=== PATIENT | female | born 1990 | race Caucasian/White ===

== ENCOUNTER → 2020-06-29 | Outpatient (CLI) | payer BC ==
[2020-06-29 16:34] LABS: Basophils % (A) 0 %; Eosinophils # (A) 0.1 k/uL (0-0.7); Eosinophils % (A) 1 %; HCT 38.6 % (34.0-46.0); HGB 12.8 gm/dL (11.4-16.0); Lymphocytes # (A) 3.2 k/uL (1.0-4.8); Lymphocytes % (A) 31 %; MCH 30.7 pg (25.0-35.0); MCHC 33.2 g/dL (31.0-37.0); MCV 92.4 fL (80.0-100.0); Mean Platelet Volume 6.8; Monocytes # (A) 0.5 k/uL (0-1.0); Monocytes % (A) 4 %; Neutrophils # (A) 6.5 k/uL (1.3-7.7); Neutrophils % (A) 63 %; Platelet Count 449 k/uL (150-450); RBC 4.18 m/uL (3.80-5.40); RDW 12.6 % (11.5-15.5); WBC 10.4 k/uL (3.8-10.6)
== END | disposition home or self-care (01) ==
LOC: LABPAT 15:10
PROVIDERS: ATTEND Obstetrics & Gynecology
DX: Z01.818 Encounter for other preprocedural examination (principal); O02.1 Missed abortion; Z3A.00 Weeks of gestation of pregnancy not specified
CPT/HCPCS: 36415; 85025

== ENCOUNTER → 2020-07-01 | Day surgery (SDC) | payer BC ==
[2020-06-29 14:40] VITALS: BMI 33.8
[~2020-07-01] MED LIST: Acetaminophen-Codeine 300-30mg TAB PO PRN; DEXAMETHASONE SOD PHOSPHATE 4 MG/ML 1 ML VIAL IVP ONE; IBUPROFEN 600 MG TAB PO PRN; KETOROLAC 15 MG/ML 1 ML VIAL IVP PRN; KETOROLAC 15 MG/ML 1 ML VIAL ONE; LACTATED RINGERS 1,000 ML IV ONE; LACTATED RINGERS 1,000 ML IV SCH; LIDOCAINE 1% INJ 10MG/ML (20 ML MDV) ONE; METOCLOPRAMIDE 5 MG/ML 2 ML VIAL IVP PRN; MIDAZOLAM 2 MG/2 ML VIAL ONE; ONDANSETRON 4 MG/2 ML VIAL IVP ONE; ONDANSETRON 4 MG/2 ML VIAL IVP PRN; ONDANSETRON 4 MG/2 ML VIAL ONE; PROPOFOL 10 MG/ML 20 ML VIAL IV ONE; Pre Op ABX Message 1 EACH MISC MISCELLANE ONE; SIMETHICONE 80 MG CHEWABLE PO PRN; diphenhydrAMINE 50 MG/ML 1 ML VIAL IVP PRN; fentaNYL (PF) 50 MCG/ML 2 ML AMP ONE
[2020-07-01 10:06] VITALS: TEMP 97.5
--- NOTE | 2020-07-01 10:07 | P.OP ---
Date of Procedure: 07/01/20 Preoperative Diagnosis: #1. 6+ weeks missed Postoperative Diagnosis: Same Procedure(s) Performed: #1. Dilation and aspiration curettage Anesthesia: other (Gen. by facemask) Surgeon: Willian Aguilar Estimated Blood Loss (ml): 100 IV fluids (ml): 700 Urine output (ml): 20 Pathology: other (Endometrial contents) Condition: stable Disposition: PACU Operative Findings: Preoperative pelvic examination demonstrated a 6 week anteverted mobile normal shaped uterus with normal adnexa bilaterally. Intraoperatively, the uterus sounded to approximately 10 cm. During curettage, tissue was noted passing through the tubing. Using the sharp curet, the typical gritty texture was encountered throughout the endometrium and there was no ongoing tissue removed either with sharp or aspiration curettage. Description of Procedure: The patient was prepped and draped in usual fashion after general anesthesia was administered by the anesthesiologist. A weighted speculum was placed and the bladder drained of approximately 20 mL of clear abel urine. The anterior lip of the cervix was grasped with single-tooth tenaculum and uterus sounded to approximately 10 cm as noted above. Serial dilation was carried out to admit a #8 curved aspiration curet which was placed to the fundus and suction applied. After adequate suction of been built, thorough and circumferential aspiration curettage was carried out from the fundus to the cervix with tissue clearly seen passing through the tubing on the first pass. A second pass was made and there was no further tissue noted. The aspiration curet was set aside in favor of a medium sharp curet which was utilized to again thoroughly and circumferentially curet the endometrium removing tissue into the vagina at which time no tissue was returned in the typical gritty texture was encountered throughout. The aspiration curet was return for one last pass which time no further tissue was noted. All instrumentation was then removed. There is some ongoing bleeding from one of the tenaculum sites was made hemostatic with pressure. Assessment a blood loss for the entire case was approximately 100 mL. There are no complications. All sponge, instrument, needle counts were correct. The patient tolerated the procedure well and proceeded to the recovery room in stable condition.
[2020-07-01 10:44] VITALS: RESP 17
[2020-07-01 11:22] VITALS: BP 110/67; PULSE 50
== END | disposition home or self-care (01) ==
LOC: OR 07:58
PROVIDERS: ATTEND Obstetrics & Gynecology
DX: O02.1 Missed abortion (principal); O99.511 Diseases of the respiratory system complicating pregnancy, first trimester; J30.2 Other seasonal allergic rhinitis; O99.891 Other specified diseases and conditions complicating pregnancy; M06.9 Rheumatoid arthritis, unspecified; Z87.448 Personal history of other diseases of urinary system; Z86.19 Personal history of other infectious and parasitic diseases; Z90.89 Acquired absence of other organs; Z3A.01 Less than 8 weeks gestation of pregnancy; Z83.3 Family history of diabetes mellitus; Z80.0 Family history of malignant neoplasm of digestive organs
CPT/HCPCS: 88305; 59820; J2250; J1100; J2405; J2001; J3010; J1885; J2704; 86850; 86900; 86901

== ENCOUNTER → 2021-07-27 | Outpatient (CLI) | payer BC | END | disposition home or self-care (01) | LOC: LABWHC1 10:02 | PROVIDERS: ATTEND Obstetrics & Gynecology | DX: O20.0 Threatened abortion (principal); Z3A.00 Weeks of gestation of pregnancy not specified | CPT/HCPCS: 36415; 84144; 84702 ==

== ENCOUNTER → 2021-07-29 | Outpatient (CLI) | payer BC | END | disposition home or self-care (01) | LOC: LABWHC1 08:51 | PROVIDERS: ATTEND Obstetrics & Gynecology | DX: O20.0 Threatened abortion (principal); Z3A.00 Weeks of gestation of pregnancy not specified | CPT/HCPCS: 36415; 84702 ==

== ENCOUNTER 2021-08-05 08:21 | Emergency (ER) | payer BC ==
[2021-08-05 08:30] VITALS: RESP 18
[2021-08-05] MEDS ORDERED: SODIUM CHLORIDE 0.9% 1,000 ML IV ONE (08:53)
[2021-08-05 09:18] LABS: Appearance,Urine Clear (Clear); Basophils % (A) 0 %; Bilirubin,Urine Negative (Negative); Blood,Urine Negative (Negative); Color,Urine Light Yellow; Eosinophils # (A) 0.2 k/uL (0-0.7); Eosinophils % (A) 2 %; Glucose,Urine (UA) Negative (Negative); HGB 13.6 gm/dL (11.4-16.0); Ketones,Urine Negative (Negative); Leukocyte Esterase,Urine Negative (Negative); Lymphocytes # (A) 2.4 k/uL (1.0-4.8); Lymphocytes % (A) 26 %; MCH 30.8 pg (25.0-35.0); MCHC 33.3 g/dL (31.0-37.0); MCV 92.6 fL (80.0-100.0); Mean Platelet Volume 6.5; Monocytes # (A) 0.3 k/uL (0-1.0); Monocytes % (A) 3 %; Neutrophils # (A) 6.1 k/uL (1.3-7.7); Neutrophils % (A) 67 %; Nitrite,Urine Negative (Negative); Platelet Count 536 k/uL (150-450); Protein,Urine Negative (Negative); RBC 4.42 m/uL (3.80-5.40); Specific Gravity,Urine 1.014 (1.001-1.035); Urobilinogen,Urine <2.0 mg/dL (<2.0); WBC 9.2 k/uL (3.8-10.6)
[2021-08-05 09:32] LABS: ALT 29 U/L (4-34); AST 33 U/L (14-36); African American GFR (CKD) >90 (>60 ml/min/1.73 sqM); Albumin 3.8 g/dL (3.5-5.0); Alkaline Phosphatase 44 U/L (38-126); Anion Gap 7 mmol/L; Blood Urea Nitrogen 10 mg/dL (7-17); Calcium 8.9 mg/dL (8.4-10.2); Carbon Dioxide 22 mmol/L (22-30); Chloride 107 mmol/L (98-107); Glucose 97 mg/dL (74-99); Lipase 47 U/L (23-300); Non-African American GFR(CKD) >90 (>60 ml/min/1.73 sqM); Potassium 3.9 mmol/L (3.5-5.1); Sodium 136 mmol/L (137-145); Total Bilirubin 0.4 mg/dL (0.2-1.3); Total Protein 6.8 g/dL (6.3-8.2)
[2021-08-05 09:46] LABS: HCG,Quantitative Serum 14.7 mIU/mL
--- NOTE | 2021-08-05 10:27 | US ---
EXAMINATION TYPE: US gallbladder DATE OF EXAM: 08/05/2021 COMPARISON: NONE CLINICAL HISTORY: pain. Pain EXAM MEASUREMENTS: Liver Length: 18.0 cm Gallbladder Wall: .2 cm CBD: .2 cm Right Kidney: 9.9 x 4.5 x 4.4 cm Pancreas: Tail obscured by overlying bowel gas Liver: wnl Gallbladder: wnl Evidence for sonographic Elkins's sign: no CBD: wnl Right Kidney: wnl Visualized portion of pancreas is within normal limits. There is no aneurysm and visualized portion o f the abdominal aorta. IVC is patent. Hepatic dome. Liver shows no worrisome mass or ductal dilatatio n. No right-sided hydronephrosis. No intraluminal gallstones. No biliary dilatation. IMPRESSION: No intraluminal gallstones or ultrasonic evidence for acute cholecystitis.
--- NOTE | 2021-08-05 10:28 | US ---
EXAMINATION TYPE: Transabdominal DATE OF EXAM: 08/05/2021 10:10 AM COMPARISON: NONE CLINICAL HISTORY: pain,miscarriage. Pain beta declining. EXAM PERFORMED: Transvaginal (TV) and Transabdominal (TA) EXAM MEASUREMENTS: GESTATIONAL AGE / DATING Physician Established: Not yet established Dates by LMP: 06/29/2021 (5 weeks/2 days) EDC: 04/05/2022 Dates by First Scan: No previous this is first scan Dates by Current Scan for: No IUP seen at this t ariel MATERNAL ANATOMY Uterus: 6.7 x 4.8 x 5.6 cm Right Ovary: 3.5 x 2.5 x 1.9 cm Left Ovary: 2.3 x 1.1 x .9 cm Post CDS / Adnexa: wnl Presence of free fluid: small amount Presence of corpus luteal cyst: no Presence of subchorionic bleed: no GESTATION / SURVEY IUP: No IUP seen at this time Beta HcG (if available): 42 Heterogeneous uterus with endometrium thickened to 15 mm. No visualized gestational sac, yolk sac, or pole. Tiny amount of free fluid in pelvic cul-de-sac. Both ovaries seen without suspicious extraovarian adnexal mass. IMPRESSION: No visualized intrauterine . Given history of declining beta-hCG, findings consi stent with spontaneous thought present.
--- NOTE | 2021-08-05 10:45 | ED ---
Abdominal Pain HPI - General Chief Complaint: Abdominal Pain Stated Complaint: right side pain, 6 week preg Time Seen by Provider: 08/05/21 08:32 Source: patient, family, RN notes reviewed Mode of arrival: ambulatory Limitations: no limitations - History of Present Illness Initial Comments: 30-year-old female presents emergency Department with chief complaint of right- sided abdominal pain. Patient states he woke up around 3:30 AM she states is right upper quadrant rate around to the back. She had no urinary frequency dysuria, hematuria. She states that she recently she is though is miscarrying she states she has not had any bleeding that she is followed very closely by her [employer]. Patient states her hCG has been trending down last one was around 30. Patient denies any chest pain shortness of breath no headache or dizziness. Patient states she no vomiting. - Related Data Home Medications Medication Instructions Recorded Confirmed No Known Home Medications 06/29/20 06/29/20 Allergies Allergy/AdvReac Type Severity Reaction Status Date / Time No Known Allergies Allergy Verified 08/05/21 08:30 Review of Systems ROS Statement: Those systems with pertinent positive or pertinent negative responses have been documented in the HPI. ROS Other: All systems not noted in ROS Statement are negative. Past Medical History Past Medical History: Rheumatoid Arthritis (RA) Additional Past Medical History / Comment(s): hx of juvenile rheumatoid arthritis- states it does not bother her now., missed AB., LMP 04/16/20. l History of Any Multi-Drug Resistant Organisms: None Reported Past Surgical History: Adenoidectomy, Tonsillectomy Additional Past Surgical History / Comment(s): nodule on voice box(child) Past Anesthesia/Blood Transfusion Reactions: No Reported Reaction, Family History of Problems w/ Anesthesia Additional Past Anesthesia/Blood Transfusion Reaction / Comment(s): grandfather=ponv Past Psychological History: No Psychological Hx Reported Smoking Status: Never smoker Past Alcohol Use History: None Reported Past Drug Use History: None Reported - Past Family History Mother Family Medical History: No Reported History Brother(s) Family Medical History: Diabetes Mellitus General Exam Limitations: no limitations General appearance: alert, in no apparent distress Head exam: Present: atraumatic, normocephalic, normal inspection Eye exam: Present: normal appearance, PERRL, EOMI. Absent: scleral icterus, conjunctival injection, periorbital swelling ENT exam: Present: normal exam, normal oropharynx, mucous membranes moist Neck exam: Present: normal inspection, full ROM. Absent: tenderness, meningismus, lymphadenopathy Respiratory exam: Present: normal lung sounds bilaterally. Absent: respiratory distress, wheezes, rales, rhonchi, stridor Cardiovascular Exam: Present: regular rate, normal rhythm, normal heart sounds. Absent: systolic murmur, diastolic murmur, rubs, gallop, clicks GI/Abdominal exam: Present: soft, tenderness, normal bowel sounds. Absent: distended, guarding, rebound, rigid Course Vital Signs 08/05/21 08/05/21 08:24 11:10 Temperature 97.2 F L 98.7 F Pulse Rate 62 67 Respiratory 18 18 Rate Blood Pressure 118/72 108/68 O2 Sat by Pulse 98 98 Oximetry Medical Decision Making - Medical Decision Making Patient ARE ESSENTIALLY UNREMARKABLE. PATIENT'S PAIN MORE CONSISTENT WITH BILIARY COLIC, LABS ARE REMARKABLE ONLY DISCHARGE STABLE CONDITION IF SYMPTOMS RETURN OR WORSEN SHE IS GENERALLY FIRM OR FOLLOW-UP WITH SURGERY FOR PROBABLE HIDA SCAN RETURN PARAMETERS DISCUSSED. PATIENT INFORMED EKG IS 14. - Lab Data Result diagrams: 08/05/21 09:00 08/05/21 09:00 Lab Results 08/05/21 08/05/21 08/05/21 Range/Units 09:00 09:00 09:00 WBC 9.2 (3.8-10.6) k/uL RBC 4.42 (3.80-5.40) m/uL Hgb 13.6 (11.4-16.0) gm/dL Hct 41.0 (34.0-46.0) % MCV 92.6 (80.0-100.0) fL MCH 30.8 (25.0-35.0) pg MCHC 33.3 (31.0-37.0) g/dL RDW 13.0 (11.5-15.5) % Plt Count 536 H (150-450) k/uL MPV 6.5 Neutrophils % 67 % Lymphocytes % 26 % Monocytes % 3 % Eosinophils % 2 % Basophils % 0 % Neutrophils # 6.1 (1.3-7.7) k/uL Lymphocytes # 2.4 (1.0-4.8) k/uL Monocytes # 0.3 (0-1.0) k/uL Eosinophils # 0.2 (0-0.7) k/uL Basophils # 0.0 (0-0.2) k/uL Sodium 136 L (137-145) mmol/L Potassium 3.9 (3.5-5.1) mmol/L Chloride 107 (98-107) mmol/L Carbon Dioxide 22 (22-30) mmol/L Anion Gap 7 mmol/L BUN 10 (7-17) mg/dL Creatinine 0.61 (0.52-1.04) mg/dL Est GFR (CKD-EPI)AfAm >90 (>60 ml/min/1.73 sqM) Est GFR (CKD-EPI)NonAf >90 (>60 ml/min/1.73 sqM) Glucose 97 (74-99) mg/dL Calcium 8.9 (8.4-10.2) mg/dL Total Bilirubin 0.4 (0.2-1.3) mg/dL AST 33 (14-36) U/L ALT 29 (4-34) U/L Alkaline Phosphatase 44 (38-126) U/L Total Protein 6.8 (6.3-8.2) g/dL Albumin 3.8 (3.5-5.0) g/dL Lipase 47 (23-300) U/L HCG, Quant 14.7 mIU/mL Urine Color Light Yellow Urine Appearance Clear (Clear) Urine pH 6.0 (5.0-8.0) Ur Specific [place] 1.014 (1.001-1.035) Urine Protein Negative (Negative) Urine Glucose (UA) Negative (Negative) Urine Ketones Negative (Negative) Urine Blood Negative (Negative) Urine Nitrite Negative (Negative) Urine Bilirubin Negative (Negative) Urine Urobilinogen <2.0 (<2.0) mg/dL Ur Leukocyte Esterase Negative (Negative) Disposition Clinical Impression: Abdominal pain, Miscarriage Disposition: HOME SELF-CARE Condition: Stable Instructions (If sedation given, give patient instructions): Abdominal Pain (ED) Additional Instructions: Please return to the ER for any worsening symptoms or any other concerns. Is patient prescribed a controlled substance at d/c from ED?: No Referrals: Carlton Holt MD [Primary Care Provider] - 1-2 days Time of Disposition: 10:45
[2021-08-05 11:11] VITALS: BP 108/68; PULSE 67; TEMP 98.7
== END 2021-08-05 11:11 | disposition home or self-care (01) ==
LOC: EC 08:21
DX: O03.9 Complete or unspecified spontaneous abortion without complication (principal); O26.891 Other specified pregnancy related conditions, first trimester; R10.11 Right upper quadrant pain; M06.9 Rheumatoid arthritis, unspecified; Z3A.01 Less than 8 weeks gestation of pregnancy
CPT/HCPCS: 36415; 76705; 76801; 76817; 80053; 81003; 83690; 84702; 85025; 96360; 99284

== ENCOUNTER 2022-07-09 00:40 | Outpatient (CLI) | payer BC ==
[2022-07-09 03:21] VITALS: BP 123/71; PULSE 67; RESP 16; TEMP 96.5
--- NOTE | 2022-08-25 12:01 | P.MSEPDOC ---
Presenting Problems - Arrival Data Date of Arrival on Unit: 07/09/22 Time of Arrival on Unit: 00:40 Mode of Transport: Wheelchair - Complaint OB-Reason for Admission/Chief Complaint: Possible Onset of Labor Comment: Lauren notified of patient present to triage due to contractions,. starting at 1530 about every 2-4min, cat 1 FHTs reviewed basline of 110, contractons. 2-4min rating them 6/10, no cervical change after 1 hour, orders to wait another hr and. recheck if pt. is still the same pt. can be discharged home. Medical History - Information : 3 Para: 0 Term: 0 : 0 Abortions: Spontaneous or Elective: 2 Number of Living Children: 0 - Gestational Age Gestational Age by JOSS (wks/days): 38 Weeks and 6 Days - History Comment: IUGR Review of Systems - Review of Systems Constitutional: No problems Breast: No problems ENT: No problems Cardiovascular: No problems Respiratory: No problems Gastrointestinal: No problems Genitourinary: No problems Musculoskeletal: No problems Neurological: No problems Skin: No problems Vital Signs - Temperature Temperature: 96.5 F Temperature Source: Temporal Artery Scan - Pulse Pulse Oximetery Pulse Rate: 67 Pulse Assessment Method: Automatic Cuff - Respirations Respiratory Rate: 16 Oxygen Delivery Method: Room Air O2 Sat by Pulse Oximetry: 97 - Blood Pressure Right Arm Blood Pressure: 123/71 Blood Pressure Mean: 88 Blood Pressure Source: Automatic Cuff Medical Screen Scoring - Cervical Exam Dilation (cm): 1 Effacement (%): 50 Membranes: Intact - Uterine Contractions Frequency From (mins): 2 Frequency To (mins): 4 Duration From (seconds): 40 Duration To (seconds): 70 Intensity: Mild Resting: Soft to palpation - Assessment - Baby A Baseline FHR: 110 Heart Rate - NICHD Category: Category I (Normal) NST: Reactive Physician Notification - Physician Notified Physician Notified Date: 07/09/22 Physician Notified Time: 02:02 Physician: Willian Aguilar Order Received: Yes - Notification Comment Comment: orders to discharge home if no cerival change Maternal Triage Index - Maternal Triage Index Presenting for scheduled procedure w/no complaint: No - Stat/Priority 1 Stat Priority 1: No - Urgent/Priority 2 Urgent Priority 2: No - Prompt/Priority 3 Prompt Priority 3: Yes Criteria Met for Priority 3: pt. is 38/6, contractions 2-4min rating 6/10, no cervical change within 2 hours. Disposition - Disposition OB Disposition: Discharge to home Discharge Date: 07/09/22 Discharge Time: 03:09 I agree with the RN Medical Screening Exam: Yes Physician's MSE Comment: I have neither seen nor examined the patient. Case reviewed; plan agreed upon as documented in EMR&OBIX.: Yes Diagnosis: RELATED CONDITIONS, UNSPECIFIED, THIRD TRIMESTER
== END 2022-07-09 03:09 | disposition home or self-care (01) ==
LOC: FBPOP 00:40
PROVIDERS: ATTEND Obstetrics & Gynecology
DX: O62.9 Abnormality of forces of labor, unspecified (principal); Z3A.38 38 weeks gestation of pregnancy
CPT/HCPCS: 59025; 99213

== ENCOUNTER 2024-03-30 03:26 | Inpatient (IN) | payer BC ==
[2024-03-30] MEDS: LACTATED RINGERS 1,000 ML IV SCH (04:00)
[2024-03-30] MEDS ORDERED: TERBUTALINE 1 MG/ML VIAL SQ PRN (04:12)
[2024-03-30] MEDS ORDERED: OXYTOCIN 10 UNIT/ML 1 ML VIAL IM PRN (04:12)
[2024-03-30] MEDS ORDERED: CARBOPROST TROMETHAMINE 250 MCG/ML 1 ML AMP IM PRN (04:12)
[2024-03-30] MEDS ORDERED: miSOPROStoL 200 MCG TAB RECTAL PRN (04:12)
[2024-03-30] MEDS ORDERED: miSOPROStoL 200 MCG TAB PO PRN (04:12)
[2024-03-30] MEDS ORDERED: TRANEXAMIC 1,000 MG/100ML-NACL 1,000 MG in EMPTY BAG 1 BAG IV PRN (04:12)
[2024-03-30] MEDS ORDERED: METHYLERGONOVINE 0.2 MG/ML 1 ML AMP IM PRN (04:12)
[2024-03-30] MEDS ORDERED: LIDOCAINE 0.5% (PF) 5 MG/ML (50 ML SDV) SQ PRN (04:12)
[2024-03-30 04:21] LABS: Basophils % (A) 0 %; Eosinophils # (A) 0.1 k/uL (0-0.7); Eosinophils % (A) 1 %; HGB 12.5 gm/dL (11.4-16.0); Lymphocytes # (A) 3.5 k/uL (1.0-4.8); Lymphocytes % (A) 26 %; MCH 30.1 pg (25.0-35.0); MCV 91.3 fL (80.0-100.0); Mean Platelet Volume 7.6; Monocytes # (A) 0.6 k/uL (0-1.0); Monocytes % (A) 4 %; Neutrophils # (A) 9.2 k/uL (1.3-7.7); Neutrophils % (A) 68 %; Platelet Count 392 k/uL (150-450); RBC 4.17 m/uL (3.80-5.40); RDW 13.8 % (11.5-15.5); WBC 13.5 k/uL (3.8-10.6)
[2024-03-30] MEDS ORDERED: fentaNYL (PF) 50 MCG/ML 5 ML AMP ONE (04:50)
[2024-03-30] MEDS ORDERED: ROPIVACAINE 5 MG/ML 30 ML VIAL ONE (04:50)
[2024-03-30] MEDS ORDERED: SODIUM CHLORIDE 0.9% 250 ML BAG ONE (04:50)
[2024-03-30] MEDS ORDERED: ROPIVACAINE 225 MG, fentaNYL (PF). 450 MCG in SODIUM CHLORIDE 0.9% 171 ML EPIDURAL ONE (05:29)
--- NOTE | 2024-03-30 07:05 | P.HPOB ---
History of Present Illness H&P Date: 03/30/24 Chief Complaint: SROM 33 year old presents at 40 weeks 4 days with spontaneous rupture of membranes. heart tones category 1 and fluid is clear. Her cervix was 3/80/ -2. She is kenan every 1-2 minutes. Review of Systems All systems: negative Constitutional: Denies chills, Denies fever Eyes: denies blurred vision, denies pain Ears, nose, mouth and throat: Denies headache, Denies sore throat Cardiovascular: Denies chest pain, Denies shortness of breath Respiratory: Denies cough Gastrointestinal: Denies abdominal pain, Denies diarrhea, Denies nausea, Denies vomiting Genitourinary: Denies dysuria, Denies hematuria Musculoskeletal: Denies myalgias Integumentary: Denies pruritus, Denies rash Neurological: Denies numbness, Denies weakness Psychiatric: Denies anxiety, Denies depression Endocrine: Denies fatigue, Denies weight change Past Medical History Past Medical History: Rheumatoid Arthritis (RA) Additional Past Medical History / Comment(s): hx of juvenile rheumatoid arthritis- states it does not bother her now., missed AB.,. l History of Any Multi-Drug Resistant Organisms: None Reported Past Surgical History: Adenoidectomy, Tonsillectomy Additional Past Surgical History / Comment(s): nodule on voice box(child), D&C Past Anesthesia/Blood Transfusion Reactions: No Reported Reaction, Family History of Problems w/ Anesthesia Additional Past Anesthesia/Blood Transfusion Reaction / Comment(s): grandfather=ponv Past Psychological History: No Psychological Hx Reported Smoking Status: Never smoker Past Alcohol Use History: None Reported Past Drug Use History: None Reported - Past Family History Mother Family Medical History: No Reported History Brother(s) Family Medical History: Diabetes Mellitus Medications and Allergies Home Medications Medication Instructions Recorded Confirmed Type Vit No.180/Iron/Folic 1 tab PO DAILY 07/09/22 03/30/24 History [ Plus Vitamin-Mineral] RX: Aspirin [Adult Low Dose 1 tab PO DAILY 07/09/22 03/30/24 History Aspirin EC] Allergies Allergy/AdvReac Type Severity Reaction Status Date / Time No Known Allergies Allergy Verified 07/09/22 10:20 Exam Osteopathic Statement: *. No significant issues noted on an osteopathic structural exam other than those noted in the History and Physical/Consult. Vital Signs Temp Pulse Resp BP Pulse Ox 03/30/24 03:38 97.0 F L 70 16 108/74 96 Intake and Output 03/29/24 03/30/24 03/30/24 22:59 06:59 14:59 Other: Weight 109.769 kg Heart: Regular rate and rhythm Lungs: Clear to auscultation bilaterally Abdomen: Soft, nontender Extremities: Negative Homans sign Results Result Diagrams: 03/30/24 03:43 Abnormal Lab Results - Last 24 Hours (Table) 03/30/24 Range/Units 03:43 WBC 13.5 H (3.8-10.6) k/uL Neutrophils # 9.2 H (1.3-7.7) k/uL Assessment and Plan (1) SROM (spontaneous rupture of membranes) Current Visit: Yes Status: Acute Code(s): [id number] - SNOMED Code(s): 379553783 (2) 40 weeks gestation of Current Visit: Yes Status: Acute Code(s): Z3A.40 - 40 WEEKS GESTATION OF PRE GNANCY SNOMED Code(s): 03336836 Plan: 1. admit to [facility] 2. pitocin augmentation if necessary 3. anticipate normal vaginal delivery
[2024-03-30] MEDS: OXYTOCIN 30 UNITS/500 ML NS 30 UNIT in SALINE 1 500ML.BAG IV SCH (08:44)
--- NOTE | 2024-03-30 09:13 | P.PROBDLV ---
Vaginal Delivery Note - . Vaginal Delivery Note: The patient is a 33-year-old 4 para 1-0-2-1 admitted at 40-3/7 weeks by good dating parameters. She had been scheduled for induction this morning but presented to labor and delivery with spontaneous rupture of membranes and early active labor with all signs reassuring, category 1 heart rate tracing. Her has been entirely uncomplicated and group B strep status is negative. On labor and delivery, she had an epidural catheter placed for analg esia and made fairly rapid progress through the active phase of labor to complete. She then pushed over the course of approximately 10 minutes to a normal spontaneous vaginal delivery of a viable 7 pound 2.5 ounce baby girl with Apgars of 9 at 1 minute and 10 at 5 minutes delivered in the left occiput anterior position. The placenta was delivered spontaneously, intact, and grossly normal with a grossly normal three-vessel cord inserted approximately 5 to 6 cm from the margin of the placental disc. There was a small second-degree midline perineal laceration over the site of a previous laceration which was repaired in standard fashion using 3-0 chromic catgut without difficulty. Estimated blood loss for the case was approximately 100 mL. There were no complications. All sponge, instrument, and needle counts were correct. Both mother and are resting comfortably in recovery.
[2024-03-30] MEDS ORDERED: diphenhydrAMINE 50 MG CAP PO PRN (09:35)
[2024-03-30] MEDS ORDERED: ZOLPIDEM 5 MG TAB PO PRN (09:35)
[2024-03-30] MEDS ORDERED: LANOLIN CREAM 1 GM TUBE TOPICAL PRN (09:35)
[2024-03-30] MEDS ORDERED: diphenhydrAMINE 50 MG/ML 1 ML VIAL IVP PRN ×2 (09:35)
[2024-03-30] MEDS ORDERED: diphenhydrAMINE 25 MG CAP PO PRN (09:35)
[2024-03-30] MEDS ORDERED: SIMETHICONE 80 MG CHEWABLE PO PRN (09:35)
[2024-03-30] MEDS ORDERED: HYDROCORTISONE 2.5% RECTAL CREAM 30 GM TUBE RECTAL PRN (09:35)
[2024-03-30] MEDS: BENZOCAINE/MENTHOL SPRAY 1 GM/SPRAY AEROSOL TOPICAL PRN (09:54)
[2024-03-30] MEDS: IBUPROFEN 800 MG TAB PO SCH (15:36)
[2024-03-30] MEDS: ACETAMINOPHEN TAB 500 MG TAB PO SCH (18:24)
[2024-03-30] MEDS: SENNOSIDES-DOCUSATE SODIUM 1 EACH TAB PO SCH (20:02)
[2024-03-31 05:10] LABS: Basophils % (A) 0 %; Eosinophils # (A) 0.2 k/uL (0-0.7); Eosinophils % (A) 1 %; HCT 32.3 % (34.0-46.0); HGB 10.9 gm/dL (11.4-16.0); Lymphocytes # (A) 4.1 k/uL (1.0-4.8); Lymphocytes % (A) 28 %; MCH 31.3 pg (25.0-35.0); MCHC 33.7 g/dL (31.0-37.0); MCV 92.9 fL (80.0-100.0); Mean Platelet Volume 7.6; Monocytes # (A) 0.5 k/uL (0-1.0); Monocytes % (A) 3 %; Neutrophils # (A) 9.7 k/uL (1.3-7.7); Neutrophils % (A) 66 %; Platelet Count 335 k/uL (150-450); RBC 3.47 m/uL (3.80-5.40); RDW 13.8 % (11.5-15.5); WBC 14.7 k/uL (3.8-10.6)
[2024-03-31 08:07] VITALS: BP 103/70; PULSE 65; RESP 16; TEMP 97.3
--- NOTE | 2024-03-31 09:01 | P.DS ---
Providers Date of admission: 03/30/24 03:26 Expected date of discharge: 03/31/24 Attending physician: Willian Aguilar Primary care physician: Stated None - Discharge Diagnosis(es) (1) Normal spontaneous vaginal delivery Current Visit: No Status: Acute Hospital Course: The patient is a 33-year-old 4 para 1-0-2-1 who presents at 40-4/7 weeks by good dating parameters. She is scheduled for induction this morning but presents with spontaneous rupture of membranes and early active labor with all signs reassuring, category 1 heart rate tracing. Her has been entirely uncomplicated and group B strep status is negative. On labor and delivery, she had an epidural catheter placed for analgesia and made fairly rapid progress through the latent and active phase of labor to complete. She then pushed to a normal spontaneous vaginal delivery of a viable 7 pound 2.5 ounce baby girl with Apgars of 9 at 1 minute and 10 at 5 minutes. Her course was unremarkable with vital signs remaining stable and her temperature was afebrile throughout. She was deemed stable for discharge on day #1 and was discharged home to follow-up in the office in 6 weeks time routinely. Discharge instructions included calling for any significantly increased bleeding or foul-smelling lochia, significantly increased fever or abdominal pain, perineal complaints, breast complaints, or anything else that concerned her. She was additionally instructed to have nothing in the vagina for at least 6 weeks time to include intercourse. She understood her instructions and agrees to follow-up as noted above. Discharge medications included continued vitamins as she has opted to breast-feed. She was otherwise to use [id number] analgesic pain medications as needed. Maternal blood type is O+ and rubella status is immune. Procedures: #1. Epidural analgesia #2. Normal spontaneous vaginal delivery #3. Repair of perineal laceration Patient Condition at Discharge: Stable Plan - Discharge Summary New Discharge Prescriptions: No Action Aspirin [Adult Low Dose Aspirin EC] 1 tab PO DAILY Vit No.180/Iron/Folic [ Plus Vitamin-Mineral] 1 tab PO DAILY Discharge Medication List Aspirin [Adult Low Dose Aspirin EC] 1 tab PO DAILY 07/09/22 [History] Vit No.180/Iron/Folic [ Plus Vitamin-Mineral] 1 tab PO DAILY 07/09/22 [History] Follow up Appointment(s)/Referral(s): Willian Aguilar MD [STAFF PHYSICIAN] - 05/11/24 2:45 pm Discharge Disposition: HOME SELF-CARE
== END 2024-03-31 11:30 | disposition home or self-care (01) | DRG 807 ==
LOC: 4FBP 03:26
PROVIDERS: ADMIT Obstetrics & Gynecology; ATTEND Obstetrics & Gynecology
PROC: 10E0XZZ Delivery of Products of Conception, External Approach (ICD-10-PCS; principal; 2024-03-30)
PROC: 0KQM0ZZ Repair Perineum Muscle, Open Approach (ICD-10-PCS; 2024-03-30)
DX: O48.0 Post-term pregnancy (principal); Z37.0 Single live birth; O70.1 Second degree perineal laceration during delivery; Z3A.40 40 weeks gestation of pregnancy; Z79.82 Long term (current) use of aspirin; Z83.3 Family history of diabetes mellitus
CPT/HCPCS: 85025; 86850; 86900; 86901